=== PATIENT | male | born 1985 | race Caucasian/White ===

== ENCOUNTER 2018-10-12 13:31 | Emergency (ER) | payer BC ==
--- NOTE | 2018-10-12 16:09 | ED ---
GI/ HPI - HPI Summary HPI Summary: Patient is a 33-year-old male who presents emergency department for testicular pain 2-3 days. Patient states pain has mostly been into his right testicle and now he has some mild pain in his left testicle. He denies fever, chills, abdominal pain, penile discharge. Patient denies injury. Symptoms are mild- moderate in severity. Walking and touching affected area makes sxs worse. Rest makes sxs better. Pt. in a monogamous relationship. - History of Current Complaint Chief Complaint: EDUrogenitalProblems Time Seen by Provider: 10/12/18 15:51 Stated Complaint: TESTICULAR PAIN PER PT Hx Obtained From: Patient Pain Intensity: 6 - Allergy/Home Medications Allergies/Adverse Reactions: Allergies Allergy/AdvReac Type Severity Reaction Status Date / Time tramadol Allergy Itching Verified 10/12/18 13:37 PMH/Surg Hx/FS Hx/Imm Hx Previously Healthy: Yes Infectious Disease History: No Infectious Disease History: Denies: Traveled Outside the [place] in Last 30 Days - Family History Known Family History: Positive: Non-Contributory - Social History Occupation: Unemployed Lives: With Family Substance Use Type: Reports: None Review of Systems Constitutional: Negative Negative: Fever, Chills Gastrointestinal: Negative Negative: Abdominal Pain, Vomiting, Nausea Positive: other - testicle pain. Negative: discharge, hematuria All Other Systems Reviewed And Are Negative: Yes Physical Exam Triage Information Reviewed: Yes Vital Signs On Initial Exam: Initial Vitals Temp Pulse Resp BP Pulse Ox 97.3 F 71 19 138/85 97 10/12/18 13:35 10/12/18 13:35 10/12/18 13:35 10/12/18 13:35 10/12/18 13:35 Vital Signs Reviewed: Yes Appearance: Positive: Well-Appearing - Pt. sitting on bed in NAD. present. Skin: Positive: Warm, Dry Head/Face: Positive: Normal Head/Face Inspection Eyes: Positive: Normal, EOMI Neck: Positive: Supple Male Genital Exam: Positive: Other - Exam performed with male techYoshi. No penile discharge or lesions. Pain and inflammation noted to the right epididymal region. No erythema or wounds. Neurological: Positive: Normal, CN Intact II-III Psychiatric: Positive: Affect/Mood Appropriate Diagnostics - Vital Signs Vital Signs Temp Pulse Resp BP Pulse Ox 10/12/18 13:35 97.3 F 71 19 138/85 97 - Laboratory Lab Statement: Any lab studies that have been ordered have been reviewed, and results considered in the medical decision making process. GIGU Course/Dx - Course Course Of Treatment: Patient presenting with testicular pain 3 days. He is afebrile. Exam as documented. Ultrasound as below. Given patient's age range Will treat with a dose of azithromycin and Rocephin and send home on doxycycline and naproxen. Advised patient to wear supportive briefs and ice and elevate intermittently. To follow-up with the [facility] in 3 days if needed. Patient return to the ER symptoms change or worsen. Patient understands and agrees with plan. U/S per radiology: IMPRESSION: #. The constellation of findings is most consistent with RIGHT epididymoorchitis. - Diagnoses Differential Diagnoses - Male: Epididymitis, STD, Testicular Torsion, Ureteral Calculi Provider Diagnoses: Epididymo-orchitis Discharge - Sign-Out/Discharge Documenting (check all that apply): Patient Departure Patient Received Moderate/Deep Sedation with Procedure: No - Discharge Plan Condition: Good Disposition: HOME Prescriptions: DOXYcycline CAP(*) [DOXYcycline 100MG CAP(*)] 100 mg PO BID #20 cap Naproxen [Naproxen 500 mg tab] 500 mg PO BID #20 tablet Patient Education Materials: Epididymo-Orchitis (ED) Referrals: [facility] [Outside] - 3 Days Additional Instructions: Follow up with the [facility] Take medication as directed Ice intermittently Wear supportive briefs Elevate scrotum Return to ER if symptoms change or worsen - Billing Disposition and Condition Condition: GOOD Disposition: Home
[2018-10-12 16:46] LABS: Urine Appearance Clear; Urine Bilirubin Negative (Negative); Urine Blood Negative (Negative); Urine Color Yellow; Urine Glucose Negative (Negative); Urine Ketones 1+ (Negative); Urine Nitrite Negative (Negative); Urine Protein Negative (Negative); Urine Specific Gravity 1.019 (1.010-1.030); Urine Urobilinogen Negative (Negative)
[2018-10-12] MEDS ORDERED: cefTRIAXone VIAL(*) 250 MG VIAL IM ONE (17:31)
[2018-10-12] MEDS ORDERED: Azithromycin TAB* 250 MG PO ONE (17:31)
[2018-10-12] MEDS ORDERED: Lidocaine 1%* 5 ML VIAL ONE (17:56)
[2018-10-12] MEDS ORDERED: Lidocaine 1%* 5 ML VIAL INJ ONE (17:59)
[2018-10-12 18:08] VITALS: BP 131/85
[2018-10-13 13:31] LABS: Neisseria gonorrhoeae (GC) RNA Negative (Negative)
== END 2018-10-12 18:07 | disposition home or self-care (01) ==
LOC: ED 13:31
DX: N45.3 Epididymo-orchitis (principal); Z88.8 Allergy status to other drugs, medicaments and biological substances
CPT/HCPCS: 76870; 81003; 87491; 87591; 96365; 99282; A9270-GY; J0696